=== PATIENT | male | born 1950 | race Caucasian/White ===

== ENCOUNTER → 2023-12-03 14:24 | Outpatient (CLI) | payer OTHER, SELFPAY ==
--- NOTE | 2023-12-03 14:29 | DI.ECHO.S_ITS ---
[facility] +---------+ : : [address] [place] : : : : [id number] : : : : Phone: [phone] +---------+ Echocardiogram Report + + :Name: REYES BLAIR Study Date: 12/03/2023 Height: 68 in : :[facility] ReadingLocation: Weight: 230 lb : : Gender: Male BSA: 2.2 m2 : :: 1950 Age: 73 yrs BP: 147/104 mmHg: :Reason For Study: CORONARY ARTERY DISEASE : :Ordering Physician: PAULIE, : :ROLANDO Lim Performed By: Caleb Hernandez : :Referring: UNSPECIFIED : + + Interpretation Summary TDS - BODY HABITUS, LUNG INTERFERENCE, VERY POOR APICAL WINDOWS - OFF AXIS ONLY AVAILABLE APICALS The study quality was technically difficult. The leftventricle is normal in size. The ejection fraction is estimated to be 55-60%. The right ventricle grossly appears normal in size with probable normal systolic function. There is mild aortic regurgitation. BP: 147/104 mmHg Procedure: A two-dimensional transthoracic echocardiogram with color flow and Doppler was performed. The study quality was technically difficult. There is no prior echocardiogram noted for this patient. The heart rate ranged between 53-91 bpm during the study. Left Ventricle: The left ventricle is normal in size. Left ventricular wall thickness is borderline increased. Proximal septal thickening is noted. The ejection fraction is estimated to be 55-60%. There are no obvious focal wall motion abnormalities noted but poor endocardial definition reduces the sensitivity for the detection of such. Diastolic parameters suggest a relaxation abnormality of the left ventricle, consistent with probable normal filling pressures. Right Ventricle: The right ventricle grossly appears normal in size with probable normal systolic function. Atria: The left atrium is mildly dilated. Right atrial size is normal. The interatrial septum grossly appears intact with no obvious evidence for an atrial septal defect. Mitral Valve: The mitral valve is normal in structure and function. There is no mitral valve stenosis. There is no mitral regurgitation noted. Aortic Valve: The aortic valve is trileaflet. The aortic valve opens well. The aortic valve is mildly calcified. There is discrete nodular thickening of the non- coronary cusp. There is no aortic valve stenosis. There is mild aortic regurgitation. Tricuspid Valve: The tricuspid valve is not well visualized, but is grossly normal. There is no tricuspid stenosis. No tricuspid regurgitation. Pulmonic Valve: The pulmonic valve is not well visualized. There is no pulmonic valvular stenosis. There is no pulmonic valvular regurgitation. Great Vessels: The aortic root is normal size. The ascending aorta is mildly enlarged. The inferior vena cava was not visualized. Pericardium/ Pleura There is no pericardial effusion. There is an anterior echo-free space consistent with a fat pad. There is no pleural effusion. MMode/2D Measurements & Calculations LVIDd: 4.6 cm LVOT diam: 2.2 cm LVIDs: 2.9 cm Ao root diam: 4.0 cm FS: 36.1 % asc Aorta Diam: 4.0 cm IVSd: 1.1 cm Ao Arch Diam (Prox Trans): 3.3 cm LVPWd: 1.2 cm LV mcgill. diameter/BSA (cm/m^2): 2.1 LV sys. diameter/BSA (cm/m^2): 1.3 LA A2 area: 20.6 cm2 RA long axis: 4.3 cm LA A4 area: 26.6 cm2 RA area: 11.2 cm2 LA length (vol): 6.4 cm RA vol: 24.7 ml LA vol: 73.3 ml RA : 11.4 ml/m2 LA vol index: 33.8 ml/m2 IVC diam: 1.9 cm RVD1 (basal): 3.6 cm RVD2 (mid): 2.9 cm Doppler Measurements & Calculations Ao V2 max: 104.2 cm/sec LVOT Max Chas: 102.3 cm/sec Ao V2 mean: 76.5 cm/sec LV V1 max P.2 mmHg Ao max P.3 mmHg LV V1 VTI: 22.8 cm Ao mean P.6 mmHg ORAL(I,D): 3.8 cm2 Ao V2 VTI: 22.1 cm ORAL(V,D): 3.6 cm2 sev ratio: 1.0 ORAL indexed to BSA (cm^2/m^2): 1.7 MV E max chas: 73.8 cm/sec PA V2 max: 135.3 cm/sec MV A max chas: 91.5 cm/sec PA V2 mean: 78.1 cm/sec MV E/A: 0.81 PA mean P.9 mmHg Med Peak E' Chas: 5.5 cm/sec PA pr(Accel): 36.2 mmHg E/E' med: 13.3 Lat Peak E' Chas: 5.8 cm/sec E/E' lat: 12.8 E/e' average: 13.1 MV dec time: 0.23 sec SV(LVOT): 83.9 ml Reading Physician:05:03 PM
== END ==
LOC: ECHO 14:28
PROVIDERS: Referring Provider Family Medicine; Visit Provider Family Medicine
DX: I35.1 Nonrheumatic aortic (valve) insufficiency (principal); I25.10 Atherosclerotic heart disease of native coronary artery without angina pectoris; I77.89 Other specified disorders of arteries and arterioles
CPT/HCPCS: 93306